=== PATIENT | male | born 1970 | race Caucasian/White ===

== ENCOUNTER 2019-11-07 07:48 | Emergency (ER) | payer OTHER, SELFPAY ==
[2019-11-07 07:54] VITALS: BP 133/89; PULSE 87; RESP 18; TEMP 36.9; O2SAT 97; BMI 30.4
--- NOTE | 2019-11-07 08:48 | ED_ITS ---
HPI - Wound/Laceration General Chief Complaint: Wound/Laceration Stated Complaint: right hand cut Time Seen by Provider: 11/07/19 08:05 Source: patient Mode of arrival: Ambulatory Limitations: no limitations History of Present Illness HPI narrative: Patient is a 49-year-old male who presents with right hand laceration. Happened at work with a [employer]yne knife. At between thumb and index finger. No numbness tingling or decreased range of motion Onset (ago): hour(s) Place: work Patient tetanus UTD: No Context: accidental Associated symptoms: none Related Data Home Medications Medication Instructions Recorded Confirmed No Known Home Medications 05/31/18 05/31/18 Previous Rx's Medication Instructions Recorded naproxen 500 mg tablet 500 mg PO BID PRN #60 tab 05/31/18 Allergies Allergy/AdvReac Type Severity Reaction Status Date / Time No Known Drug Allergies Allergy Verified 11/07/19 08:04 Review of Systems Review of Systems Narrative: GENERAL: Denies chills,fever HEENT: Denies throat pain RESPIRATORY: Denies dyspnea, cough, wheezing CARDIOVASCULAR: Denies chest pain, palpitations GASTROINTESTINAL: Denies nausea, vomiting MUSCULOSKELETAL: Denies extremity pain, injury SKIN: Right hand laceration NEUROLOGIC: Denies weakness, dizziness, headache, numbness 8 point review of systems is negative except for those stated above and HPI Patient History Medical History Patient denies medical problems (Acute) Social History Smoking Status: Never smoker Smoking Status: Never smoker alcohol intake frequency: 0-2 drinks per day Substance Use Type: does not use Exam Initial Vital Signs Initial Vital Signs: Vital Signs Temperature 98.5 F 11/07/19 07:54 Pulse Rate 87 11/07/19 07:54 Respiratory Rate 18 11/07/19 07:54 Blood Pressure 133/89 11/07/19 07:54 Pulse Oximetry 97 11/07/19 07:54 GENERAL: Well-appearing, well-nourished and in no acute distress. CARDIOVASCULAR: peripheral pulses in tact, cap refill <2 sec RESPIRATORY: No respiratory distress, speaks in full sentences without difficulty EXTREMITIES: Normal range of motion, no clubbing or edema. Neurovascularly intact NEUROLOGICAL: Cranial nerves II through XII grossly intact. Normal gait and speech. SKIN: 3 cm laceration between right thumb and index finger good opposition of thumb to pinky good flexion and extension neurovascularly intact Procedures Laceration Repair Laceration 1: Site: hand Side (If applicable): right Size (cm): 3 Description: linear Depth: simple, single layer Local Anesthetic: lidocaine 1% Amount of anesthesia used (mL): 4 Pre-repair: wound explored and deep structures intact Skin layer closed with: nylon Size (cm): 4-0 Number of sutures: 4 Course Orders Ordered: Discontinued Medications Bacitracin (Bacitracin) 1 applic TOP NOW ONE Stop: 11/07/19 09:37 Last Admin: 11/07/19 09:46 Dose: 1 applic Documented by: WINTER Diphtheria/Tetanus/Acell Pertussis (Adacel) 0.5 ml IM .ONCE ONE Stop: 11/07/19 09:27 Last Admin: 11/07/19 09:32 Dose: 0.5 ml Documented by: WINTER Lidocaine HCl (Xylocaine 1% (Pf)) 4 ml INJ NOW ONE Stop: 11/07/19 08:01 Last Admin: 11/07/19 09:25 Dose: 4 ml Documented by: WINTER Vital Signs Vital signs: Vital Signs - 8 hr 11/07/19 07:54 Temperature 98.5 F Pulse Rate 87 Respiratory Rate 18 Blood Pressure 133/89 Pulse Oximetry 97 Discharge Plan Departure Patient Disposition: Home Clinical Impression: Laceration of hand, right Qualifiers: Encounter type: initial encounter Foreign body presence: without foreign body Qualified Code(s): S61.411A - Laceration without foreign body of right hand, initial encounter Discharge Date/Time: 11/07/19 09:47 Instructions: DI for Laceration Repair Activity Restrictions/Additional Instructions: 1. Have your suture removed in 5-7 days, you may go to walk-in clinic, return to the ER or call your primary care physician. 2. No soaking in water including dishes, bathtubs, Lakes, swimming pools etc 3. Signs of infection include, but not limited to, increased redness, increased swelling, increased pain, fever and purulent drainage, if the symptoms should arise, you may need an antibiotic and you should have a reevaluation either by your primary care provider or by the emergency department. Prescriptions: No Action No Known Home Medications RF: 0 naproxen [Naprosyn] 500 mg tablet 500 mg PO BID PRN (Reason: pain) Qty: 60 RF: 0 Referrals: [facility] [Outside]
[2019-11-07] MEDS: LIDOCAINE 1% (PF) 4 ML INJ (09:25)
[2019-11-07] MEDS: TET,DIPH,PERTUSS(ACELL),VAC/PF 0.5 ML SYRINGE IM (09:32)
[2019-11-07] MEDS: BACITRACIN OINT 0.9 GM PCKT 1 APPLIC TOP (09:46)
== END 2019-11-07 09:47 | disposition home or self-care (01) ==
PROVIDERS: Emergency Provider Emergency Medicine
DX: S61.411A Laceration without foreign body of right hand, initial encounter (principal); W26.0XXA Contact with knife, initial encounter; Y99.0 Civilian activity done for income or pay; Z23 Encounter for immunization
CPT/HCPCS: 12002; 90471; 99283; 99284; 90715